=== PATIENT | female | born 1940 | race African-American/Black ===

== ENCOUNTER 2018-08-20 16:16 | Inpatient (IN) | payer MEDICARE | END 2018-08-27 20:32 | disposition home health service (06) | LOC: CENTRAL 22:49 → ER 16:16 → OVERFLOW 21:23 → CENTRAL 22:57 | PROC: 0SRR0JZ Replacement of Right Hip Joint, Femoral Surface with Synthetic Substitute, Open Approach (ICD-10-PCS; principal; 2018-08-24 14:20) | DX: S72.011A Unspecified intracapsular fracture of right femur, initial encounter for closed fracture (principal); N39.0 Urinary tract infection, site not specified; W18.30XA Fall on same level, unspecified, initial encounter; I10 Essential (primary) hypertension; D72.829 Elevated white blood cell count, unspecified; K57.30 Diverticulosis of large intestine without perforation or abscess without bleeding; J44.9 Chronic obstructive pulmonary disease, unspecified; M70.60 Trochanteric bursitis, unspecified hip; Z96.641 Presence of right artificial hip joint ==

== ENCOUNTER 2021-02-16 08:22 | Emergency (ER) | payer MEDICARE ==
[~2021-02-16] VITALS: Ht 165.1 cm; Wt 44.5 kg
[~2021-02-16 08:22] MED LIST: ALBUAER3 IN; AMOX-263; AZIT250T8 PO; FLUT110A IN
[2021-02-16 09:11] LABS: Basophils # (auto) 0 10 ^3/uL (0-0.2); Basophils % (auto) 0.7 % (0.0-2.0); Eosinophils # (auto) 0.1 10 ^3/uL (0-0.8); Eosinophils % (auto) 1.1 % (0.0-7.0); Hematocrit 44.9 % (36.0-46.0); Hemoglobin 15.2 g/dL (12.2-16.2); Lymphocytes # (auto) 1.1 10 ^3/uL (0.4-5.4); Lymphocytes % (auto) 15.4 % (10.0-50.0); Mean Corpuscular Hgb Conc. 33.9 g/dL (32.0-36.0); Mean Corpuscular Volume 88.5 fL (80.0-100.0); Monocytes # (auto) 0.7 10 ^3/uL (0-1.3); Monocytes % (auto) 9.2 % (0.0-12.0); Neutrophils # (auto) 5.3 10 ^3/uL (1.6-8.6); Neutrophils % (auto) 73.6 % (37.0-80.0); Nucleated Red Blood Cells % 0.1 %; Red Blood Cells 5.08 10^6/uL (4.0-5.20); Red Cell Distribution Width 15.2 % (11.8-14.3); White Blood Cell 7.2 10^3/uL (4.4-10.8)
[2021-02-16 09:14] LABS: Albumin 3.2 g/dL (3.4-5.0); Calcium 8.6 mg/dL (8.5-10.1); Magnesium 2.4 mg/dL (1.6-2.6); Potassium 4.4 mmol/L (3.5-5.1)
[2021-02-16 09:21] LABS: BUN/Creatinine Ratio 22.2; Bilirubin, Total 0.6 mg/dL (0.2-1.0); Total Protein 6.4 g/dL (6.4-8.2)
[2021-02-16 10:29] LABS: Urine Bacteria FEW /hpf (None Seen); Urine Blood 3+ /uL (Negative); Urine Specific Gravity 1.009 (1.001-1.035); Urine WBC 3 /hpf (0 - 5)
[2021-02-16 12:38] VITALS: BP 119/58
== END 2021-02-16 13:10 | disposition home or self-care (01) ==
LOC: ER 08:22
DX: S93.402A Sprain of unspecified ligament of left ankle, initial encounter (principal); R60.0 Localized edema; R31.9 Hematuria, unspecified; R79.89 Other specified abnormal findings of blood chemistry; F17.210 Nicotine dependence, cigarettes, uncomplicated; I10 Essential (primary) hypertension; J44.9 Chronic obstructive pulmonary disease, unspecified; Z90.49 Acquired absence of other specified parts of digestive tract; Z90.710 Acquired absence of both cervix and uterus; Z79.2 Long term (current) use of antibiotics; Z79.899 Other long term (current) drug therapy; Z88.0 Allergy status to penicillin; Z88.5 Allergy status to narcotic agent; W19.XXXA Unspecified fall, initial encounter; Y93.89 Activity, other specified; Y92.89 Other specified places as the place of occurrence of the external cause; Y99.8 Other external cause status
CPT/HCPCS: 36415; 71046; 73610; 80053; 81001; 83735; 83880; 84484; 85025; 93005; 93971

== ENCOUNTER 2021-03-19 01:22 | Inpatient (IN) | payer MEDICARE ==
[~2021-03-19] VITALS: Ht 162.6 cm; Wt 45.2 kg
[2021-03-19 02:17] LABS: Basophils # (auto) 0 10 ^3/uL (0-0.2); Basophils % (auto) 0.7 % (0.0-2.0); Eosinophils # (auto) 0 10 ^3/uL (0-0.8); Eosinophils % (auto) 0.3 % (0.0-7.0); Hematocrit 45.4 % (36.0-46.0); Hemoglobin 15.3 g/dL (12.2-16.2); Lymphocytes # (auto) 0.7 10 ^3/uL (0.4-5.4); Lymphocytes % (auto) 14.4 % (10.0-50.0); Mean Corpuscular Hgb Conc. 33.8 g/dL (32.0-36.0); Mean Corpuscular Volume 88.9 fL (80.0-100.0); Monocytes # (auto) 0.5 10 ^3/uL (0-1.3); Neutrophils # (auto) 3.9 10 ^3/uL (1.6-8.6); Neutrophils % (auto) 74.6 % (37.0-80.0); Nucleated Red Blood Cells % 0.2 %; Red Cell Distribution Width 15.3 % (11.8-14.3); White Blood Cell 5.2 10^3/uL (4.4-10.8)
[2021-03-19 02:30] LABS: Albumin 3.4 g/dL (3.4-5.0); BUN/Creatinine Ratio 24.2; Calcium 8.8 mg/dL (8.5-10.1); INR 1.08 (0.9-1.15); Magnesium 2.1 mg/dL (1.6-2.6); Potassium 4.3 mmol/L (3.5-5.1)
[2021-03-19] MEDS ORDERED: ALBUTEROL SULF 2.5 MG/0.5ML(0.5%) NEB SOLN NEB ONE (02:30)
[2021-03-19] MEDS ORDERED: IPRATROPIUM BROM 0.5 MG/2.5ML INH SOL NEB ONE (02:30)
[2021-03-19 02:39] LABS: Bilirubin, Total 0.4 mg/dL (0.2-1.0); Total Protein 6.7 g/dL (6.4-8.2)
[2021-03-19] MEDS ORDERED: FUROSEMIDE 20 MG/2 ML VIAL IV ONE (05:00)
[2021-03-19] MEDS ORDERED: IOHEXOL 350 MG/ML 100ML IJ ONE (05:09)
[2021-03-19] MEDS ORDERED: ONDANSETRON HCL 4 MG/2 ML VIAL IV PRN (06:30)
[2021-03-19] MEDS ORDERED: TEMAZEPAM 15 MG CAP PO PRN (06:30)
[2021-03-19] MEDS ORDERED: NITROGLYCERIN 0.4 MG SL TAB SL PRN (06:30)
[2021-03-19] MEDS ORDERED: MORPHINE SULFATE INJECTION 2 MG/ML SYRG IV PRN (06:30)
[2021-03-19] MEDS ORDERED: ALBUTEROL SULF 2.5 MG/0.5ML(0.5%) NEB SOLN NEB PRN ×2 (06:30→16:00)
[2021-03-19] MEDS ORDERED: ACETAMINOPHEN 325 MG TAB PO PRN (06:30)
[2021-03-19] MEDS: SACUBITRIL-VALSARTAN 24mg/26mg TAB PO SCH ×2 (10:00→21:36)
[2021-03-19] MEDS: ENOXAPARIN SOD 40 MG/0.4 ML SYRINGE SC SCH (10:00)
[2021-03-19] MEDS ORDERED: FUROSEMIDE 20 MG/2 ML VIAL IV SCH (10:00)
[2021-03-19] MEDS ORDERED: PANTOPRAZOLE 40 MG TAB PO SCH (10:00)
[2021-03-19] MEDS: ASPirin 81 mg TAB PO SCH (10:31)
[2021-03-19] MEDS: FUROSEMIDE 20 MG/2 ML VIAL IV SCH ×2 (10:31→21:35)
[2021-03-19 10:35] LABS: Cholesterol 201 mg/dL (< 200); Triglycerides 83 mg/dL (< 150)
[2021-03-19 10:40] LABS: HDL Cholesterol 69 mg/dL (40-59); LDL Cholesterol 105 mg/dL (< 100)
[2021-03-19] MEDS: CARVEDILOL 3.125 MG TAB PO SCH ×2 (10:48→21:36)
[2021-03-19] MEDS ORDERED: CHOLECALCIFEROL (VITD3) 2,000 UNIT CAP/TAB PO ONE (16:00)
[2021-03-19] MEDS ORDERED: IPRATROPIUM BROM 0.5 MG/2.5ML INH SOL NEB PRN (16:00)
[2021-03-19 16:40] VITALS: BP 106/72
[2021-03-19] MEDS ORDERED: ERGOCALCIFEROL 50,000 UNIT(1.25MG) CAP PO SCH (16:45)
[2021-03-19] MEDS ORDERED: SPIRONOLACTONE 25 MG TAB PO SCH (18:00)
[2021-03-19 18:49] VITALS: BP 106/72
[2021-03-19 22:00] VITALS: BP 92/53
[2021-03-19] MEDS ORDERED: ATORVASTATIN 20 MG TAB PO SCH (22:00)
[2021-03-20] VITALS (7 sets, daily range): BP systolic 80–100; BP diastolic 49–87
[2021-03-20 02:45] LABS: Urine Bacteria NONE SEEN /hpf (None Seen); Urine Blood 3+ /uL (Negative); Urine Specific Gravity 1.037 (1.001-1.035); Urine WBC 10 /hpf (0 - 5)
[2021-03-20 06:04] LABS: Basophils # (auto) 0 10 ^3/uL (0-0.2); Eosinophils # (auto) 0 10 ^3/uL (0-0.8); Eosinophils % (auto) 0.5 % (0.0-7.0); Hematocrit 46.5 % (36.0-46.0); Hemoglobin 15.9 g/dL (12.2-16.2); Lymphocytes # (auto) 1.1 10 ^3/uL (0.4-5.4); Lymphocytes % (auto) 23.9 % (10.0-50.0); Mean Corpuscular Hemoglobin 29.9 pg (28.0-32.0); Mean Corpuscular Hgb Conc. 34.2 g/dL (32.0-36.0); Mean Corpuscular Volume 87.6 fL (80.0-100.0); Monocytes # (auto) 0.5 10 ^3/uL (0-1.3); Monocytes % (auto) 11.5 % (0.0-12.0); Neutrophils # (auto) 2.9 10 ^3/uL (1.6-8.6); Neutrophils % (auto) 63.1 % (37.0-80.0); Nucleated Red Blood Cells % 0.2 %; Red Blood Cells 5.31 10^6/uL (4.0-5.20); Red Cell Distribution Width 14.7 % (11.8-14.3); White Blood Cell 4.6 10^3/uL (4.4-10.8)
[2021-03-20 06:22] LABS: INR 1.09 (0.9-1.15); Partial Thromboplastin Time 28.1 sec (23.6-33.0)
[2021-03-20 06:42] LABS: BUN/Creatinine Ratio 26.1; Calcium 8.3 mg/dL (8.5-10.1); Magnesium 2.3 mg/dL (1.6-2.6)
[2021-03-20] MEDS ORDERED: IODIXANOL 320MG/ML 100ML BTL IV ONE (09:33)
[2021-03-20] MEDS ORDERED: LIDOCAINE 2%HCL (LOCAL ANESTH.) INJ 20ML MDV ONE (09:34)
[2021-03-20] MEDS: CARVEDILOL 3.125 MG TAB PO SCH (10:00)
[2021-03-20] MEDS: SACUBITRIL-VALSARTAN 24mg/26mg TAB PO SCH ×2 (10:00→15:38)
[2021-03-20] MEDS: FUROSEMIDE 20 MG/2 ML VIAL IV SCH (10:00)
[2021-03-20] MEDS ORDERED: CHOLECALCIFEROL (VITD3) 2,000 UNIT CAP/TAB PO SCH (10:00)
[2021-03-20] MEDS: ENOXAPARIN SOD 40 MG/0.4 ML SYRINGE SC SCH (10:00)
[2021-03-20] MEDS ORDERED: VERAPAMIL 2.5MG/ML INJ 2ML VIAL IV ONE (10:35)
[2021-03-20] MEDS ORDERED: HEPARIN SODIUM (PORCINE) 5000 UNITS/ML 1ML VIAL ONE (10:35)
[2021-03-20] MEDS ORDERED: ANGIOMAX 250 MG VIAL IV ONE (10:35)
[2021-03-20] MEDS ORDERED: SODIUM CHL 0.9% 0 ML ONE (10:36)
[2021-03-20] MEDS ORDERED: fentaNYL CITRATE 100 MCG/2 ML VL ONE (10:36)
[2021-03-20] MEDS ORDERED: MIDAZOLAM HCL 2MG/2ML 2ml VIAL (1mg/ml) ONE (10:36)
[2021-03-20] MEDS: ASPirin 81 mg TAB PO SCH (15:37)
== END 2021-03-20 17:35 | disposition home or self-care (01) | DRG 286 ==
LOC: EDBD 01:22 → ER 01:27 → TELE 06:31 → TELE-WESTW 16:40
PROVIDERS: ADMIT Nurse Practitioner; ATTEND Internal Medicine
PROC: 4A023N8 Measurement of Cardiac Sampling and Pressure, Bilateral, Percutaneous Approach (ICD-10-PCS; principal; 2021-03-20)
PROC: B2111ZZ Fluoroscopy of Multiple Coronary Arteries using Low Osmolar Contrast (ICD-10-PCS; 2021-03-20)
PROC: B2151ZZ Fluoroscopy of Left Heart using Low Osmolar Contrast (ICD-10-PCS; 2021-03-20)
PROC: B4101ZZ Fluoroscopy of Abdominal Aorta using Low Osmolar Contrast (ICD-10-PCS; 2021-03-20)
DX: I11.0 Hypertensive heart disease with heart failure (principal); I50.23 Acute on chronic systolic (congestive) heart failure; R64 Cachexia; E44.0 Moderate protein-calorie malnutrition; I31.3 Pericardial effusion (noninflammatory); J44.1 Chronic obstructive pulmonary disease with (acute) exacerbation; Z68.1 Body mass index [BMI] 19.9 or less, adult; Z20.822 Contact with and (suspected) exposure to COVID-19; I42.9 Cardiomyopathy, unspecified; I27.20 Pulmonary hypertension, unspecified; E55.9 Vitamin D deficiency, unspecified; E78.5 Hyperlipidemia, unspecified; M19.90 Unspecified osteoarthritis, unspecified site; I35.0 Nonrheumatic aortic (valve) stenosis; F17.210 Nicotine dependence, cigarettes, uncomplicated; I25.10 Atherosclerotic heart disease of native coronary artery without angina pectoris; Z82.49 Family history of ischemic heart disease and other diseases of the circulatory system; Z90.710 Acquired absence of both cervix and uterus; Z88.5 Allergy status to narcotic agent; Z88.0 Allergy status to penicillin; Z90.49 Acquired absence of other specified parts of digestive tract
CPT/HCPCS: 36415; 71045; 71275; 75625; 80048; 80053; 80061; 81001; 82306; 83036; 83605; 83735; 83880; 84439; 84443; 84484; 85025; 85379; 85610; 85730; 87040; 87426; 93005; 93306; 93460; 93925; 93970; 94640; 96372; 96374; 96376; 99152; 99153; C1751; G0378; J2250; Q9967

== ENCOUNTER 2021-10-18 19:54 | Inpatient (IN) | payer MEDICARE, MEDICAID, OTHER ==
[~2021-10-18] VITALS: Ht 149.9 cm; Wt 39.0 kg
[2021-10-18] MEDS ORDERED: SODIUM CHLORIDE 0.9% 1,000 ML IV ONE ×2 (20:45→21:15)
[2021-10-18 21:16] LABS: Basophils # (auto) 0 10 ^3/uL (0-0.2); Basophils % (auto) 0.2 % (0.0-2.0); Eosinophils # (auto) 0 10 ^3/uL (0-0.8); Hemoglobin 11.8 g/dL (12.2-16.2); Lymphocytes # (auto) 0.4 10 ^3/uL (0.4-5.4); Mean Corpuscular Hemoglobin 29.9 pg (28.0-32.0); Mean Corpuscular Hgb Conc. 33.7 g/dL (32.0-36.0); Mean Corpuscular Volume 88.7 fL (80.0-100.0); Monocytes # (auto) 0.9 10 ^3/uL (0-1.3); Monocytes % (auto) 9.7 % (0.0-12.0); Neutrophils # (auto) 8.4 10 ^3/uL (1.6-8.6); Neutrophils % (auto) 86.1 % (37.0-80.0); Red Blood Cells 3.94 10^6/uL (4.0-5.20); Red Cell Distribution Width 14.7 % (11.8-14.3); White Blood Cell 9.8 10^3/uL (4.4-10.8)
[2021-10-18 21:36] LABS: Albumin 2.4 g/dL (3.4-5.0); BUN/Creatinine Ratio 30.5; Calcium 8.3 mg/dL (8.5-10.1); Magnesium 2.1 mg/dL (1.6-2.6); Potassium 4.6 mmol/L (3.5-5.1)
[2021-10-18 21:39] LABS: Lactic Acid w/Reflex 3.2 mmol/L (0.4-2.0)
[2021-10-18 21:44] LABS: INR 1.21 (0.9-1.15); Partial Thromboplastin Time 26.5 sec (23.6-33.0)
[2021-10-18 21:51] LABS: Bilirubin, Total 0.6 mg/dL (0.2-1.0); Total Protein 5.4 g/dL (6.4-8.2)
[2021-10-18] MEDS ORDERED: ASPirin 325 MG TAB PO ONE (22:00)
[2021-10-18] MEDS ORDERED: DOCUSATE SOD 100 MG CAP PO PRN (23:15)
[2021-10-18] MEDS ORDERED: ALBUMIN 25% 100 ML IV ONE (23:15)
[2021-10-18] MEDS ORDERED: ONDANSETRON HCL 4 MG/2 ML VIAL IV PRN (23:15)
[2021-10-18] MEDS ORDERED: NITROGLYCERIN 0.4 MG SL TAB SL PRN (23:15)
[2021-10-19 01:36] VITALS: BP 84/33
[2021-10-19 01:42] LABS: Urine Bacteria MANY /hpf (None Seen); Urine Blood 1+ /uL (Negative); Urine Hyaline Cast MOD /lpf (0 - 2); Urine Specific Gravity 1.014 (1.001-1.035); Urine WBC 238 /hpf (0 - 5); Urine WBC Clumps PRESENT /hpf (None Seen)
[2021-10-19 05:00] VITALS: BP 71/35
[2021-10-19] MEDS: SODIUM CHLOR 0.9% PF (SALINE LOCK) 10ML VIAL/SYR IV SCH ×3 (06:27→22:11)
[2021-10-19 07:34] LABS: Basophils # (auto) 0 10 ^3/uL (0-0.2); Basophils % (auto) 0.3 % (0.0-2.0); Eosinophils # (auto) 0 10 ^3/uL (0-0.8); Eosinophils % (auto) 0.3 % (0.0-7.0); Hematocrit 30.9 % (36.0-46.0); Hemoglobin 10.7 g/dL (12.2-16.2); Lymphocytes # (auto) 0.5 10 ^3/uL (0.4-5.4); Mean Corpuscular Hemoglobin 30.4 pg (28.0-32.0); Mean Corpuscular Hgb Conc. 34.5 g/dL (32.0-36.0); Mean Corpuscular Volume 88.1 fL (80.0-100.0); Monocytes # (auto) 0.7 10 ^3/uL (0-1.3); Monocytes % (auto) 8.4 % (0.0-12.0); Neutrophils # (auto) 7.1 10 ^3/uL (1.6-8.6); Red Blood Cells 3.51 10^6/uL (4.0-5.20); Red Cell Distribution Width 14.2 % (11.8-14.3); White Blood Cell 8.4 10^3/uL (4.4-10.8)
[2021-10-19] MEDS ORDERED: SODIUM CHLORIDE 0.9% 1,000 ML IV ONE (07:45)
[2021-10-19] MEDS ORDERED: ALBUMIN 25% 100 ML IV ONE (07:45)
[2021-10-19] MEDS ORDERED: SODIUM CHLORIDE 0.9% 500 ML IV ONE (07:45)
[2021-10-19 07:55] LABS: Albumin 2.6 g/dL (3.4-5.0); BUN/Creatinine Ratio 33.6; Calcium 7.8 mg/dL (8.5-10.1); Potassium 4.6 mmol/L (3.5-5.1)
[2021-10-19 07:58] LABS: Bilirubin, Total 0.7 mg/dL (0.2-1.0)
[2021-10-19] MEDS: ACETAMINOPHEN 325 MG TAB PO PRN (08:36)
[2021-10-19 09:00] VITALS: BP 89/49
[2021-10-19] MEDS ORDERED: ASCORBIC ACID 500 MG TAB PO SCH (10:00)
[2021-10-19] MEDS ORDERED: ZINC SULFATE 220mg CAP or TAB PO SCH (10:00)
[2021-10-19] MEDS ORDERED: cefTRIAXone 1GM/50ML D5W 50 ML IV ONE (11:30)
[2021-10-19] MEDS: ASPirin 81 mg TAB PO SCH (11:38)
[2021-10-19] MEDS: FAMOTIDINE (10MG/ML) 2ML VL IV SCH (11:38)
[2021-10-19] MEDS: MULTIPLE VITAMIN TAB PO SCH (11:38)
[2021-10-19] MEDS: HEPARIN SODIUM (PORCINE) 5000 UNITS/ML 1ML VIAL SC SCH ×2 (11:39→22:17)
[2021-10-19] MEDS: Ensure HIGH Protein Chocolate 8oz Bottle PO SCH ×2 (12:29→18:37)
[2021-10-19 13:00] VITALS: BP 81/42
[2021-10-19 17:00] VITALS: BP 76/42
[2021-10-19] MEDS ORDERED: ASPI-325 PO (18:52)
[2021-10-19] MEDS ORDERED: LORA1TAB23 PO (18:52)
[2021-10-19] MEDS ORDERED: ATOR20TA50 PO (18:52)
[2021-10-19 21:36] VITALS: BP 92/50
[2021-10-20 04:46] VITALS: BP 98/53
[2021-10-20] MEDS: SODIUM CHLOR 0.9% PF (SALINE LOCK) 10ML VIAL/SYR IV SCH ×2 (06:00→14:00)
[2021-10-20 07:51] LABS: Uric Acid 9.4 mg/dL (2.6-6.0)
[2021-10-20 07:55] LABS: Calcium 8.1 mg/dL (8.5-10.1); Potassium 4.3 mmol/L (3.5-5.1)
[2021-10-20 07:59] LABS: BUN/Creatinine Ratio 40.2
[2021-10-20 08:19] LABS: Phosphorus 0.7 mg/dL (2.5-4.90)
[2021-10-20 09:00] VITALS: BP 102/56
[2021-10-20] MEDS ORDERED: cefTRIAXone 1GM/50ML D5W 50 ML IV SCH (09:00)
[2021-10-20] MEDS: FAMOTIDINE (10MG/ML) 2ML VL IV SCH (09:58)
[2021-10-20] MEDS: ASPirin 81 mg TAB PO SCH (09:59)
[2021-10-20] MEDS: HEPARIN SODIUM (PORCINE) 5000 UNITS/ML 1ML VIAL SC SCH (10:00)
[2021-10-20] MEDS: MULTIPLE VITAMIN TAB PO SCH (10:00)
[2021-10-20] MEDS: ACETAMINOPHEN 325 MG TAB PO PRN (10:59)
[2021-10-20] MEDS ORDERED: Ensure Enlive Strawberry 8oz Bottle PO SCH (12:00)
[2021-10-20 13:00] VITALS: BP 92/48
[2021-10-20] MEDS ORDERED: SODIUM PHOSPHATES 20 MEQ in SODIUM CHL 0.9% 100 ML IV ONE (15:15)
[2021-10-20 17:00] VITALS: BP 107/41
[2021-10-21] MEDS ORDERED: FAMOTIDINE (10MG/ML) 2ML VL IV SCH (10:00)
== END 2021-10-20 18:40 | disposition hospice, home (50) | DRG 280 ==
LOC: EDBD 19:54 → EDUNIT# 19:54 → ER 19:54 → TELE-EAST 23:10
PROVIDERS: ADMIT Nurse Practitioner Family; ATTEND Nurse Practitioner Family
DX: I21.4 Non-ST elevation (NSTEMI) myocardial infarction (principal); N17.0 Acute kidney failure with tubular necrosis; I50.22 Chronic systolic (congestive) heart failure; N39.0 Urinary tract infection, site not specified; I13.0 Hypertensive heart and chronic kidney disease with heart failure and stage 1 through stage 4 chronic kidney disease, or unspecified chronic kidney disease; I95.9 Hypotension, unspecified; E86.0 Dehydration; F17.210 Nicotine dependence, cigarettes, uncomplicated; Z20.822 Contact with and (suspected) exposure to COVID-19; F03.90 Unspecified dementia, unspecified severity, without behavioral disturbance, psychotic disturbance, mood disturbance, and anxiety; I25.10 Atherosclerotic heart disease of native coronary artery without angina pectoris; I34.0 Nonrheumatic mitral (valve) insufficiency; J44.9 Chronic obstructive pulmonary disease, unspecified; N18.9 Chronic kidney disease, unspecified; R62.7 Adult failure to thrive; E88.09 Other disorders of plasma-protein metabolism, not elsewhere classified; M19.90 Unspecified osteoarthritis, unspecified site; Z82.49 Family history of ischemic heart disease and other diseases of the circulatory system; Z90.710 Acquired absence of both cervix and uterus; Z88.5 Allergy status to narcotic agent; Z88.0 Allergy status to penicillin; Z90.49 Acquired absence of other specified parts of digestive tract
CPT/HCPCS: 36415; 70450; 71045; 73502; 80048; 80053; 81001; 82040; 83036; 83605; 83735; 83880; 84100; 84439; 84443; 84484; 84550; 85025; 85610; 85730; 87040; 87086; 92610; 93005; 93306; 96361; 96365; 99291; G0378; J0696; J3490; P9047

== ENCOUNTER 2021-11-28 17:29 | Inpatient (IN) | payer OTHER, MEDICARE, MEDICAID ==
[~2021-11-28] VITALS: Ht 152.4 cm; Wt 35.2 kg
[~2021-11-28 17:29] MED LIST changes: -ALBUAER3 IN; -AMOX-263; +ASPI-325 PO; +ATOR20TA50 PO; -AZIT250T8 PO; +LORA1TAB23 PO
[2021-11-28] MEDS ORDERED: SODIUM CHLORIDE 0.9% 1,000 ML IV ONE (18:45)
[2021-11-29] MEDS ORDERED: ONDANSETRON HCL 4 MG/2 ML VIAL IV PRN (04:45)
[2021-11-29] MEDS ORDERED: DOCUSATE SOD 100 MG CAP PO PRN (04:45)
[2021-11-29] MEDS ORDERED: ACETAMINOPHEN 325 MG TAB PO PRN ×2 (04:45→08:15)
[2021-11-29] MEDS: ALBUMIN 25% 50 ML IV SCH ×3 (04:45→20:25)
[2021-11-29] MEDS ORDERED: NITROGLYCERIN 0.4 MG SL TAB SL PRN (05:45)
[2021-11-29] MEDS ORDERED: MORPHINE SULFATE INJ 2 MG/ml SYRG IV PRN ×2 (05:45→08:15)
[2021-11-29 07:13] LABS: Potassium 4.7 mmol/L (3.5-5.1)
[2021-11-29 07:14] LABS: Basophils # (auto) 0 10 ^3/uL (0-0.2); Eosinophils # (auto) 0 10 ^3/uL (0-0.8); Hematocrit 36.1 % (36.0-46.0); Hemoglobin 11.5 g/dL (12.2-16.2); Lymphocytes # (auto) 0.4 10 ^3/uL (0.4-5.4); Lymphocytes % (auto) 2.9 % (10.0-50.0); Mean Corpuscular Hgb Conc. 31.8 g/dL (32.0-36.0); Mean Corpuscular Volume 91.4 fL (80.0-100.0); Monocytes # (auto) 0.8 10 ^3/uL (0-1.3); Monocytes % (auto) 5.4 % (0.0-12.0); Neutrophils # (auto) 13.3 10 ^3/uL (1.6-8.6); Neutrophils % (auto) 91.7 % (37.0-80.0); Red Blood Cells 3.95 10^6/uL (4.0-5.20); Red Cell Distribution Width 17.5 % (11.8-14.3); White Blood Cell 14.6 10^3/uL (4.4-10.8)
[2021-11-29 07:19] LABS: Albumin 2.4 g/dL (3.4-5.0); BUN/Creatinine Ratio 45.6; Bilirubin, Total 1.4 mg/dL (0.2-1.0); Calcium 7.6 mg/dL (8.5-10.1); Total Protein 5.4 g/dL (6.4-8.2)
[2021-11-29] MEDS ORDERED: HYDROmorphone HCL 2 MG/ML VL/or syr IV PRN (08:15)
[2021-11-29] MEDS ORDERED: LORazepam 2MG/ML-1ML VIAL IV PRN (08:15)
[2021-11-29] MEDS: MULTIPLE VITAMIN TAB PO SCH (10:00)
[2021-11-29] MEDS: ASCORBIC ACID 500 MG TAB PO SCH ×2 (10:00→22:00)
[2021-11-29] MEDS: ASPirin 81 mg TAB PO SCH (10:00)
[2021-11-29] MEDS ORDERED: levoFLOXacin 500MG 100 ML IV ONE (10:00)
[2021-11-29] MEDS: ZINC SULFATE 220mg CAP or TAB PO SCH (10:00)
[2021-11-29] MEDS ORDERED: FAMOTIDINE (10MG/ML) 2ML VL IV SCH (10:00)
[2021-11-29] MEDS ORDERED: levoFLOXacin 250MG 50 ML IV ONE (10:15)
[2021-11-29] MEDS ORDERED: HYDROCORTISONE SOD SUCC 100 MG/2ML INJ VIAL IV ONE (10:15)
[2021-11-29] MEDS: SOD CHL 0.45% 1,000 ML IV SCH (12:16)
[2021-11-29 13:00] VITALS: BP 78/43
[2021-11-29 14:53] VITALS: BP 78/43
[2021-11-29 16:36] VITALS: BP 92/49
[2021-11-29] MEDS: HYDROCORTISONE SOD SUCC 100 MG/2ML INJ VIAL IV SCH (20:24)
[2021-11-29 20:50] LABS: Urine Bacteria FEW /hpf (None Seen); Urine Blood 2+ /uL (Negative); Urine Budding Yeast FEW /hpf (None Seen); Urine Hyaline Cast MOD /lpf (0 - 2); Urine Specific Gravity 1.017 (1.001-1.035); Urine WBC 17 /hpf (0 - 5)
[2021-11-29 22:00] VITALS: BP 87/48
[2021-11-29] MEDS: ATORVASTATIN 20 MG TAB PO SCH (22:00)
[2021-11-30] MEDS: SOD CHL 0.45% 1,000 ML IV SCH ×2 (00:45→20:45)
[2021-11-30] MEDS: HYDROCORTISONE SOD SUCC 100 MG/2ML INJ VIAL IV SCH ×3 (04:39→18:52)
[2021-11-30 05:00] VITALS: BP 80/44
[2021-11-30 07:55] LABS: Basophils # (auto) 0 10 ^3/uL (0-0.2); Eosinophils # (auto) 0 10 ^3/uL (0-0.8); Hematocrit 27.2 % (36.0-46.0); Hemoglobin 9.3 g/dL (12.2-16.2); Lymphocytes # (auto) 0.3 10 ^3/uL (0.4-5.4); Lymphocytes % (auto) 1.7 % (10.0-50.0); Mean Corpuscular Hemoglobin 30.4 pg (28.0-32.0); Mean Corpuscular Hgb Conc. 34.2 g/dL (32.0-36.0); Mean Corpuscular Volume 89.1 fL (80.0-100.0); Monocytes # (auto) 0.5 10 ^3/uL (0-1.3); Monocytes % (auto) 3.4 % (0.0-12.0); Neutrophils # (auto) 14.8 10 ^3/uL (1.6-8.6); Neutrophils % (auto) 94.9 % (37.0-80.0); Potassium 3.4 mmol/L (3.5-5.1); Red Blood Cells 3.06 10^6/uL (4.0-5.20); Red Cell Distribution Width 17.2 % (11.8-14.3); White Blood Cell 15.6 10^3/uL (4.4-10.8)
[2021-11-30 07:59] LABS: Albumin 2.2 g/dL (3.4-5.0); BUN/Creatinine Ratio 51.8; Calcium 6.1 mg/dL (8.5-10.1); Total Protein 4.2 g/dL (6.4-8.2)
[2021-11-30 09:00] VITALS: BP 88/52
[2021-11-30] MEDS: ASPirin 81 mg TAB PO SCH (10:00)
[2021-11-30] MEDS: ZINC SULFATE 220mg CAP or TAB PO SCH (10:00)
[2021-11-30] MEDS: ASCORBIC ACID 500 MG TAB PO SCH ×2 (10:00→22:00)
[2021-11-30] MEDS: MULTIPLE VITAMIN TAB PO SCH (10:00)
[2021-11-30 13:00] VITALS: BP 94/58
[2021-11-30] MEDS: levoFLOXacin 250MG 50 ML IV SCH (13:34)
[2021-11-30 17:00] VITALS: BP 91/52
[2021-11-30 20:00] VITALS: BP 94/48
[2021-11-30 22:00] VITALS: BP 94/48
[2021-11-30] MEDS: ATORVASTATIN 20 MG TAB PO SCH (22:00)
[2021-12-01] MEDS: HYDROCORTISONE SOD SUCC 100 MG/2ML INJ VIAL IV SCH ×3 (02:24→18:16)
[2021-12-01 05:00] VITALS: BP 138/77
[2021-12-01 05:29] LABS: Basophils # (auto) 0.1 10 ^3/uL (0-0.2); Basophils % (auto) 0.5 % (0.0-2.0); Eosinophils # (auto) 0 10 ^3/uL (0-0.8); Hemoglobin 9.9 g/dL (12.2-16.2); Lymphocytes # (auto) 0.3 10 ^3/uL (0.4-5.4); Lymphocytes % (auto) 1.5 % (10.0-50.0); Mean Corpuscular Hemoglobin 29.8 pg (28.0-32.0); Mean Corpuscular Volume 87.5 fL (80.0-100.0); Monocytes # (auto) 0.4 10 ^3/uL (0-1.3); Monocytes % (auto) 2.5 % (0.0-12.0); Neutrophils # (auto) 17.1 10 ^3/uL (1.6-8.6); Neutrophils % (auto) 95.5 % (37.0-80.0); Nucleated Red Blood Cells % 0.1 %; Red Blood Cells 3.31 10^6/uL (4.0-5.20); Red Cell Distribution Width 17.3 % (11.8-14.3); White Blood Cell 17.9 10^3/uL (4.4-10.8)
[2021-12-01 06:08] LABS: Potassium 3.9 mmol/L (3.5-5.1)
[2021-12-01 06:13] LABS: BUN/Creatinine Ratio 54.5; Calcium 7.6 mg/dL (8.5-10.1)
[2021-12-01 09:00] VITALS: BP 98/56
[2021-12-01] MEDS ORDERED: FAMOTIDINE (10MG/ML) 2ML VL IV SCH (10:00)
[2021-12-01] MEDS: MULTIPLE VITAMIN TAB PO SCH (10:00)
[2021-12-01] MEDS: ASCORBIC ACID 500 MG TAB PO SCH (10:00)
[2021-12-01] MEDS: ZINC SULFATE 220mg CAP or TAB PO SCH (10:00)
[2021-12-01] MEDS: ASPirin 81 mg TAB PO SCH (10:00)
[2021-12-01] MEDS: levoFLOXacin 250MG 50 ML IV SCH (10:22)
[2021-12-01 13:00] VITALS: BP 91/59
[2021-12-01] MEDS ORDERED: MEROPENEM 2 GM in SODIUM CHL 0.9% 250 ML IV SCH (14:00)
[2021-12-01] MEDS: SOD CHL 0.45% 1,000 ML IV SCH (16:45)
[2021-12-01 17:00] VITALS: BP 93/59
[2021-12-01 22:00] VITALS: BP 86/45
[2021-12-01] MEDS: MEROPENEM 500MG IVPB 50 ML IV SCH (22:47)
[2021-12-02] MEDS: HYDROCORTISONE SOD SUCC 100 MG/2ML INJ VIAL IV SCH ×2 (01:05→10:45)
[2021-12-02 05:00] VITALS: BP 81/51
[2021-12-02] MEDS ORDERED: ALBUMIN 5% 250 ML IV ONE (05:00)
[2021-12-02 08:00] VITALS: BP 98/54
[2021-12-02] MEDS: MEROPENEM 500MG IVPB 50 ML IV SCH (10:45)
[2021-12-02 12:00] VITALS: BP 93/57
[2021-12-02] MEDS: SOD CHL 0.45% 1,000 ML IV SCH (12:30)
[2021-12-02 16:00] VITALS: BP 83/45
== END 2021-12-02 16:50 | disposition hospice, home (50) | DRG 871 ==
LOC: ER 17:29 → EDBD 17:29 → TELE 11-29 05:31 → TELE-WESTW 11-29 10:38
PROVIDERS: ADMIT Nurse Practitioner Family; ATTEND Internal Medicine
DX: A41.51 Sepsis due to Escherichia coli [E. coli] (principal); E43 Unspecified severe protein-calorie malnutrition; N17.0 Acute kidney failure with tubular necrosis; N39.0 Urinary tract infection, site not specified; I13.0 Hypertensive heart and chronic kidney disease with heart failure and stage 1 through stage 4 chronic kidney disease, or unspecified chronic kidney disease; I50.42 Chronic combined systolic (congestive) and diastolic (congestive) heart failure; Z68.1 Body mass index [BMI] 19.9 or less, adult; R62.7 Adult failure to thrive; F17.210 Nicotine dependence, cigarettes, uncomplicated; I34.0 Nonrheumatic mitral (valve) insufficiency; J44.9 Chronic obstructive pulmonary disease, unspecified; Z66 Do not resuscitate; N18.30 Chronic kidney disease, stage 3 unspecified; Z20.822 Contact with and (suspected) exposure to COVID-19; M19.90 Unspecified osteoarthritis, unspecified site; R54 Age-related physical debility; Z82.49 Family history of ischemic heart disease and other diseases of the circulatory system; Z90.710 Acquired absence of both cervix and uterus; Z74.01 Bed confinement status; Z51.5 Encounter for palliative care; Z88.5 Allergy status to narcotic agent; Z88.0 Allergy status to penicillin; Z90.49 Acquired absence of other specified parts of digestive tract; B96.20 Unspecified Escherichia coli [E. coli] as the cause of diseases classified elsewhere
CPT/HCPCS: 36415; 80048; 80053; 81001; 82533; 85025; 87040; 87086; 87088; 87186; 96360; 96379; G0378; J1956; J2185; J3490